=== PATIENT | female | born 1990 | race Hispanic/Latino ===

== ENCOUNTER 2020-12-17 13:42 | Outpatient (CLI) | payer MEDICAID ==
[2020-12-17] MEDS ORDERED: LACTATED RINGERS 1,000 ML IV ONE (16:30)
[2020-12-17 16:39] LABS: Bacteria,Urine 1+ /HPF (Negative); Bilirubin,Urine NEG (Negative); Blood,Urine NEG (Negative); Color,Urine Straw (Yellow); Protein,Urine <15 mg/dL mg/dL (Negative); Urobilinogen,Urine < 2.0 mg/dL (<2.0)
[2020-12-17 17:01] LABS: Hematocrit 36.4 % (30.3-42.9); Hemoglobin 12.2 gm/dl (10.1-14.3); Mean Corpuscular HGB Conc 34 % (30-34); Mean Corpuscular Volume 94 fl (79-97); Platelet Count 265 K/mm3 (140-440); Red Cell Distribution Width 13.1 % (13.2-15.2)
[2020-12-17 17:24] LABS: Alanine Aminotransferase 20 units/L (7-56); Uric Acid 4.3 mg/dL (3.5-7.6)
[2020-12-17 18:30] VITALS: BP 113/64
== END 2020-12-17 18:46 | disposition home or self-care (01) ==
LOC: TRG 13:42 → APU 13:43 → EDSTATUS 14:26 → TRG 18:46
DX: O26.893 Other specified pregnancy related conditions, third trimester (principal); R06.02 Shortness of breath; Z3A.37 37 weeks gestation of pregnancy
CPT/HCPCS: 36415; 59025; 81001; 82565; 83615; 84450; 84460; 84550; 85027

== ENCOUNTER 2021-01-04 17:27 | Inpatient (IN) | payer MEDICAID ==
[2021-01-04] MEDS ORDERED: miSOPROStol 200 MCG TAB PR PRN (19:35)
[2021-01-04] MEDS ORDERED: LOPERAMIDE 2 MG CAP PO PRN (19:35)
[2021-01-04] MEDS ORDERED: CARBOPROST TROMETHAMINE 250 MCG/1 ML INJ IM PRN (19:35)
[2021-01-04] MEDS ORDERED: OXYTOCIN 10 UNIT/1 ML INJ IM PRN (19:35)
[2021-01-04] MEDS ORDERED: ePHEDrine SULFATE 50 MG/1 ML INJ IV PRN ×2 (19:35→21:47)
[2021-01-04] MEDS ORDERED: fentaNYL 100 MCG/2 ML INJ IV PRN (19:35)
[2021-01-04] MEDS ORDERED: METHYLERGONOVINE MALEATE 0.2 MG/ML VIAL IM PRN (19:35)
[2021-01-04] MEDS ORDERED: TERBUTALINE 1 MG/1 ML INJ SUB-Q PRN (19:35)
[2021-01-04] MEDS ORDERED: MINERAL OIL 30 ML ORAL LIQD PO PRN (19:35)
[2021-01-04] MEDS ORDERED: LIDOCAINE (2%) 20 MG/1 ML VIAL 20 ML MDV INFILTRATI ONE (19:35)
[2021-01-04] MEDS ORDERED: ACETAMINOPHEN 325 MG TAB PO PRN (19:35)
[2021-01-04] MEDS ORDERED: BUTORPHANOL 2 MG/1 ML INJ IV PRN (19:35)
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
[2021-01-04] MEDS ORDERED: OXYTOCIN DRIP 30 UNITS/500 ML BAG IV SCH ×2 (20:00)
[2021-01-04] MEDS: LACTATED RINGERS 1,000 ML IV SCH ×2 (20:25→21:17)
[2021-01-04 20:57] LABS: Hematocrit 34.9 % (30.3-42.9); Mean Corpuscular HGB Conc 34 % (30-34); Mean Corpuscular Volume 92 fl (79-97); Platelet Count 250 K/mm3 (140-440); Red Blood Count 3.79 M/mm3 (3.65-5.03); Red Cell Distribution Width 13.2 % (13.2-15.2)
[2021-01-04] MEDS ORDERED: NALOXONE 2 MG/2 ML INJ IV PRN (21:47)
--- NOTE | 2021-01-04 21:49 | Anesthesia Consultation ---
Anesthesia Consult and Med Hx Date of service: 01/04/21 - Airway Anesthetic Teeth Evaluation: Good ROM Head & Neck: Adequate Mental/Hyoid Distance: Adequate Mallampati Class: Class II Intubation Access Assessment: Probably Good - Pulmonary Exam CTA: Yes - Cardiac Exam Cardiac Exam: RRR - Pre-Operative Health Status ASA Pre-Surgery Classification: ASA2 Proposed Anesthetic Plan: Epidural - Pulmonary Hx Asthma: No COPD: No - Cardiovascular System Hx Hypertension: No - Central Nervous System Hx Seizures: No Hx Psychiatric Problems: Yes - Endocrine Hx Renal Disease: No Hx End Stage Renal Disease: No Hx Hypothyroidism: No Hx Hyperthyroidism: Yes - Hematic Hx Anemia: No Hx Sickle Cell Disease: No - Other Systems Hx Alcohol Use: No
[2021-01-04] MEDS ORDERED: fentaNYL-BUPIV 2 MCG/ML-0.125% 200 MCG/100 ML BAG EPIDURAL SCH (22:00)
--- NOTE | 2021-01-04 22:10 | Progress Note ---
Labor Epidural - Labor Epidural Start Time: 21:56 Stop Time: 22:02 Performed by:: CHELLY MARTINEZ Procedure: Patient is requesting epidural for labor pain. H&P, and labs reviewed. Procedure explained, questions answered, consent obtained. Patient in sitting position with blood pressure cuff and pulse ox on and working. Timeout performed immediately before start of procedure. Sterile chlorahexadine 0.5% prep/drape. 3 mL 1% lidocaine skin wheal at L[3]-L[4]. 17-gauge tuohy epidural needle advanced to [id number] with saline at [7] cm. 25-gauge spinal needle advanced until clear, free-flowing CSF. Intrathecal dexmedetomidine [5] mcg administered and needle removed. Epidural catheter advanced to [12] cm, negative aspiration for blood and csf, negative test dose 3 ml 1.5% lidocaine with epinephrine. Sterile sponge and tegaderm applied, followed by tape reinforcement. Patient tolerated procedure well.
[2021-01-05] MEDS: LACTATED RINGERS 1,000 ML IV SCH (00:39)
--- NOTE | 2021-01-05 05:07 | Event Note ---
Date: 01/05/21 SVE 0.
[2021-01-05] MEDS ORDERED: LIDOCAINE MPF (2%) 20 MG/1 ML VIAL 5 ML ONE (07:55)
--- NOTE | 2021-01-05 08:26 | Procedure Note ---
OB Delivery Note - Delivery Date of Delivery: 01/05/21 Surgeon: SIDRA SNOW Estimated blood loss: other (250 cc) - Vaginal Delivery presentation: vertex Delivery position: OA Intrapartum events: none Delivery induction: none Delivery augmentation: pitocin Delivery monitor: external FHT, external uterine Route of delivery: Delivery placenta: spontaneous Delivery cord: 3 umbilical vessels Delivery laceration: 3rd degree Delivery repair: vicryl Anesthesia: local, epidural Delivery comments: Spontaneous vaginal delivery at 07:33 of liveborn female infant weighing 8 lb. 3 oz. over 3rd degree perineal laceration with apgars of 8/9. Epidural anesthesia. was atraumatic; no nuchal cord. Baby was placed skin to skin with mom immediately after delivery. Baby was dried with warm blankets and suctioned with bulb syringe. Spontaneous cry and respirations. 3 vessel cord double clamped and cut after cessation of pulsation. Spontaneous delivery of intact placenta and membranes by heard mechanism at 07:40. EBL 250 cc. Pitocin to IV fluids after delivery of placenta. Fundus firm and midline. Called Dr. Valentine to repair 3rd degree perineal laceration. 3rd degree perineal laceration was repaired by Dr. Valentine with 2-0 vicryl. Vaginal sweep negative. Sponge count correct. Mother and baby stable in birthing room.
[2021-01-05] MEDS ORDERED: WITCH HAZEL/ GLYCERIN PAD TP PRN ×2 (09:30→10:00)
[2021-01-05] MEDS ORDERED: BENZOCAINE/MENTHOL 20/0.5% TOP SPRAY 56 GM TP PRN (09:30)
[2021-01-05] MEDS ORDERED: diphenhydrAMINE 25 MG CAP PO PRN (09:30)
[2021-01-05] MEDS ORDERED: LANOLIN/ZINC/DIMETHICONE (LANSINOH) 7 GM TP PRN (10:00)
[2021-01-05] MEDS ORDERED: MAGNESIUM HYDROXIDE (MOM) ORAL LIQD UDC PO PRN (10:00)
[2021-01-05] MEDS: IBUPROFEN 600 MG TAB PO SCH ×2 (13:03→18:44)
[2021-01-05] MEDS: PRENATAL VIT27-FE FUMARATE-FOLIC ACID VIT TAB PO SCH (13:04)
[2021-01-05] MEDS: DOCUSATE SODIUM 100 MG CAP PO SCH ×3 (17:56→22:34)
[2021-01-05] MEDS: HYDROcodone/ACETAMINOPHEN 5-325 MG TAB PO PRN (20:26)
[2021-01-05 21:04] LABS: Hematocrit 32.5 % (30.3-42.9); Hemoglobin 11.2 gm/dl (10.1-14.3)
[2021-01-06] MEDS: IBUPROFEN 600 MG TAB PO SCH ×4 (04:00→23:55)
--- NOTE | 2021-01-06 09:29 | Post Anesthesia Evaluation ---
- Post Anesthesia Evaluation Patient Participated: Yes Airway Patent: Yes Stable Respiratory Function: Yes Nausea/Vomiting: No Temp > 96.8F: Yes Pain Manageable: Yes Adequeate Hydration: Yes Anesthesia Complications: No Block Receding Appropriately: Yes
[2021-01-06] MEDS: DOCUSATE SODIUM 100 MG CAP PO SCH ×2 (10:23→21:45)
[2021-01-06] MEDS: PRENATAL VIT27-FE FUMARATE-FOLIC ACID VIT TAB PO SCH (10:23)
--- NOTE | 2021-01-06 10:24 | Progress Note ---
Assessment and Plan A: S/P with 3rd degree lac sore cracked nipples p: Continue routine pp orders Breast milk to nipples prn then air dry Discussed proper infant positioning during BF Dermaplast to perineum prn D/C home tomm if stable Subjective - Subjective Date of service: 01/06/21 Principal diagnosis: s/p Patient reports: appetite normal, voiding normally, pain well controlled, ambulating normally, other [place]: doing well, nursing well Objective - Vital Signs Latest vital signs: Vital Signs Temp Pulse Resp BP BP Pulse Ox Pulse Ox 01/06/21 08:00 100 01/06/21 07:58 98.1 F 93 H 19 132/77 97 01/06/21 04:00 18 01/06/21 01:02 98.0 F 79 20 127/81 97 01/05/21 21:26 18 01/05/21 20:26 18 01/05/21 20:00 99 01/05/21 18:57 01/05/21 16:41 98.3 F 93 H 20 110/76 98 01/05/21 16:09 01/05/21 13:41 01/05/21 11:15 98.3 F 86 20 103/75 99 01/05/21 10:29 86 98 01/05/21 10:25 89 95/53 01/05/21 10:24 92 H 98 01/05/21 10:19 87 99 Pulse Ox 01/06/21 08:00 100 01/06/21 07:58 01/06/21 04:00 01/06/21 01:02 01/05/21 21:26 01/05/21 20:26 01/05/21 20:00 99 01/05/21 18:57 100 01/05/21 16:41 01/05/21 16:09 100 01/05/21 13:41 100 01/05/21 11:15 99 01/05/21 10:29 01/05/21 10:25 01/05/21 10:24 01/05/21 10:19 Intake and Output 01/05/21 01/06/21 01/06/21 22:59 06:59 14:59 Intake Total 720 840 120 Output Total 350 Balance 370 840 120 Intake: Oral 720 840 120 Output: Urine 350 Void 350 Other: Total, Intake Amount 240 120 120 Total, Output Amount 350 # Voids Void 1 - Exam Breasts: Present: pain, other (sore cracked nipples) Abdomen: Present: normal appearance, soft, normal bowel sounds Vulva: both: normal Uterus: Present: normal, firm, fundal height below umbilicus Extremities: Present: normal Incision: Present: normal, intact
--- NOTE | 2021-01-06 10:46 | Discharge Summary ---
Providers - Providers Date of Admission: 01/04/21 19:36 Date of discharge: 01/07/21 Attending physician: JESSICA RIBERA MD Primary care physician: JESSICA RIBERA MD Hospitalization Reason for admission: active labor, IUP at term Delivery: Episiotomy: none Laceration: 3rd degree Incision: normal, intact Other procedures: none complications: none Discharge diagnosis: IUP at term delivered [place] baby: female Hospital course: [facility]. Pt dev no pp complications. See H&P, delivery summary, and pp note. Condition at discharge: Stable Disposition: HOME / SELF CARE / HOMELESS Plan - Discharge Medications Prescriptions: Ibuprofen [Motrin 600 MG tab] 600 mg PO Q6H PRN #30 tablet PRN Reason: Menstrual Cramps - Provider Discharge Summary Activity: routine, no sex for 6 weeks, no heavy lifting 4 weeks, no strenuous exercise Diet: routine Instructions: routine Additional instructions: [] Smoking cessation referral if applicable(refer to patient education folder for contact #) [] Refer to [facility] Booklet Call your doctor immediately for: * Fever > 100.5 * Heavy vaginal bleeding ( >1 pad per hour) * Severe persistent headache * Shortness of breath * Reddened, hot, painful area to leg or breast * Drainage or odor from incision. * Keep incision clean and dry at all times and follow doctor's instructions regarding bathing/showering - Follow up plan Follow up: JESSICA RIBERA MD [Primary Care Provider] - 6 Weeks
[2021-01-06] MEDS: HYDROcodone/ACETAMINOPHEN 5-325 MG TAB PO PRN (21:49)
[2021-01-07] MEDS: IBUPROFEN 600 MG TAB PO SCH ×2 (06:15→10:30)
[2021-01-07] MEDS: HYDROcodone/ACETAMINOPHEN 5-325 MG TAB PO PRN (09:34)
[2021-01-07] MEDS: DOCUSATE SODIUM 100 MG CAP PO SCH (09:34)
[2021-01-07] MEDS: PRENATAL VIT27-FE FUMARATE-FOLIC ACID VIT TAB PO SCH (09:35)
[2021-01-07 12:39] VITALS: BP 121/77
== END 2021-01-07 12:45 | disposition home or self-care (01) | DRG 775 ==
LOC: TRG 17:27 → APU 17:28 → TRG 19:35 → LD 19:36 → OB 01-05 11:59
PROC: 10E0XZZ Delivery of Products of Conception, External Approach (ICD-10-PCS; principal; 2021-01-05)
PROC: 0DQR0ZZ Repair Anal Sphincter, Open Approach (ICD-10-PCS; 2021-01-05)
PROC: 3E0R3BZ Introduction of Anesthetic Agent into Spinal Canal, Percutaneous Approach (ICD-10-PCS; 2021-01-05)
PROC: 00HU33Z Insertion of Infusion Device into Spinal Canal, Percutaneous Approach (ICD-10-PCS; 2021-01-05)
DX: O99.284 Endocrine, nutritional and metabolic diseases complicating childbirth (principal); Z3A.40 40 weeks gestation of pregnancy; Z37.0 Single live birth; Z91.040 Latex allergy status; Z91.018 Allergy to other foods; Z20.822 Contact with and (suspected) exposure to COVID-19; E05.90 Thyrotoxicosis, unspecified without thyrotoxic crisis or storm; O70.20 Third degree perineal laceration during delivery, unspecified; Z83.3 Family history of diabetes mellitus; Z82.49 Family history of ischemic heart disease and other diseases of the circulatory system
CPT/HCPCS: 36415; 85014; 85018; 85027; 86850; 86900; 86901; 99211; G0378; A6250; G0463; J2590; J3010; J7120; U0003